=== PATIENT | male | born 1950 | race Caucasian/White ===

== ENCOUNTER 2016-07-26 09:39 | Emergency (ER) | payer OTHER ==
[~2016-07-26] VITALS: Ht 177.8 cm; Wt 83.0 kg
[2016-07-26 09:45] VITALS: TEMP 37; Ht 177.8 cm; Wt 83.0 kg
--- NOTE | 2016-07-26 10:42 | DIAGNOSTIC IMAGING REPORT ---
SINGLE VIEW CHEST CLINICAL HISTORY: Cough. FINDINGS: An AP, portable, upright chest radiograph is obtained. No prior studies are available for comparison at the time of dictation. The examination is degraded by portable technique and patient rotation. The heart is mildly enlarged and there is atherosclerotic calcification of the thoracic aorta. The lungs appear hyperinflated and hyperlucent suggesting emphysematous change. A 1.4 cm nodular density is suggested in the left midlung. No airspace consolidation, pleural effusion, or no pneumothorax is seen. Calcified granulomas are observed. The bony thorax is grossly intact. IMPRESSION: 1. Cardiomegaly and suspect emphysema. There is no acute cardiopulmonary abnormality. 2. There is a questionable 1.4 cm nodular density projecting over the left midlung. This may simply represent a prominent pulmonary vessel or supervision of shadows. Follow-up with a dedicated PA and lateral examination is recommended for reassessment. Electronically signed by: Jez Smith M.D. 07/26/2016 10:40 AM Dictated Date/Time: 07/26/2016 10:38 AM
--- NOTE | 2016-07-26 10:43 | DIAGNOSTIC IMAGING REPORT ---
HEAD CT NONCONTRAST CT DOSE: HISTORY: headache TECHNIQUE: Multiaxial CT images of the head were performed without the use of intravenous contrast. Automated exposure control was utilized for this study. Comparison: None. Findings: The calvarium and skull base are intact. The ventricles and sulci are within normal limits. There is no mass, hematoma, midline shift, or acute infarct. Impression: No acute intracranial abnormality. SINUS CT CT DOSE: HISTORY: headache TECHNIQUE: Multiaxial CT images of the paranasal sinuses were performed and reformatted in the coronal plane without the use of contrast. COMPARISON: None. FINDINGS: Mild mucosal thickening within the ethmoid air cells. Small amount of bubbly secretions within a single right posterior ethmoid air cell. The sphenoid sinuses, frontal sinuses, and right maxillary sinus are essentially clear. Tiny retention cysts within the left maxillary sinus. No fluid levels within the paranasal sinuses. Bilateral chavez bullosa. The mastoid air cells are clear. The bilateral ostiomeatal units are patent. The nasal septum is midline. The orbits are unremarkable. IMPRESSION: Minimal chronic sinus disease as described above. No fluid levels to suggest acute sinusitis. Electronically signed by: Ulisses Salmon M.D. 07/26/2016 10:41 AM Dictated Date/Time: 07/26/2016 10:33 AM
[2016-07-26 11:01] LABS: BASO % 0.3 %; BASO ABS # 0.02 K/uL (0-0.2); COMPLETE YES; EOS % 2.5 %; HEMATOCRIT 44.9 % (42-52); IG% 0.2 %; LYMPH % 23.5 %; LYMPH ABS # 1.53 K/uL (1.2-3.4); MEAN CELL VOLUME 92.8 fL (80-100); MEAN CORPUSCULAR HEMOGLOBIN 32.6 pg (25-34); MEAN CORPUSCULAR HGB CONC 35.2 g/dl (32-36); MEAN PLATELET VOLUME 11.3 fL (7.4-10.4); MONO % 13.5 %; PLATELET COUNT 183 K/uL (130-400); RED BLOOD COUNT 4.84 M/uL (4.7-6.1); WHITE BLOOD COUNT 6.52 K/uL (4.8-10.8)
[2016-07-26 11:22] LABS: BUN/CREATININE RATIO 14.6 (10-20); CALCIUM 9.1 mg/dl (8.5-10.1); CREATININE 0.83 mg/dl (0.60-1.40); POTASSIUM 3.8 mmol/L (3.5-5.1)
--- NOTE | 2016-07-26 12:07 | EMERGENCY ROOM VISIT NOTE ---
History Report prepared by [place]: Lawanda Bartlett Under the Supervision of: Dr. Yuval Amaya D.O. First contact with patient: 09:48 Chief Complaint: ILLNESS History of Present Illness The patient is a 66 year old male who presents to the Emergency Room with complaints of persistent dizziness that began five weeks ago. He currently rates his discomfort as a 4/10 in severity. The patient additionally notes a headache and ear pain. He denies seeing his primary care physician for this problem. The patient states that he has dry sinuses as well, noting that they are not properly draining. He notes a sore throat, cough, and neck tenderness. The patient denies any difficulty moving his bowels. He states that he was recently on Amoxicillin. The patient denies any recent congestion or runny nose. He denies taking any Tylenol or Motrin. The patient states that his dizziness is worsened with walking. He reports normal appetite, and normal fluid intake. Source of History: patient Onset: five weeks ago Position: other (global) Symptom Intensity: 4/10 Quality: other (dizziness) Timing: other Modifying Factors (Worsening): other (walking) Associated Symptoms: + cough, + headache, + neck pain, + sorethroat Note: Associated symptoms: ear pain. Review of Systems See HPI for pertinent positives & negatives. A total of 10 systems reviewed and were otherwise negative. Past Medical & Surgical No pertinent history stated. Family History No pertinent family history stated. Social History Smoking Status: Never Smoker Marital Status: Housing Status: lives with significant other Occupation Status: retired Current/Historical Medications No Active Prescriptions or Reported Meds Allergies Coded Allergies: No Known Allergies (Unverified , 07/26/16) Physical Exam Vital Signs Date Time Temp Pulse Resp B/P Pulse Ox O2 Delivery O2 Flow Rate FiO2 07/26/16 11:46 67 22 162/89 96 Room Air 07/26/16 10:10 67 16 159/92 97 Room Air 07/26/16 10:08 58 07/26/16 09:45 37.0 69 18 195/103 97 Room Air Physical Exam CONSTITUTIONAL/VITAL SIGNS: Reviewed / noted above. GENERAL: Non-toxic in appearance. INTEGUMENTARY: Warm, dry, and [place]. HEAD: Normocephalic. No tenderness to palpation of the temporal arteries. EYES: without scleral icterus or trauma. ENT/OROPHARYNX: clear and moist. LYMPHADENOPATHY/NECK: Is supple without lymphadenopathy or meningismus. RESPIRATORY: Lungs clear and equal. CARDIOVASCULAR: Regular rate and rhythm. GI/ABDOMEN: Soft and nontender. No organomegaly or pulsatile mass. No rebound or guarding. Normal bowel sounds. EXTREMITIES: Warm and well perfused. BACK: No CVA tenderness. NEUROLOGICAL: Intact without focal deficits. PSYCHIATRIC: normal affect. MUSCULOSKELETAL: Normally developed with good muscle tone. Medical Decision & Procedures ER Provider Diagnostic Interpretation: X ray results and stated below per my interpretation and radiologist interpretation. Other radiology results and stated below per my review and radiologist interpretation: HEAD CT NONCONTRAST CT DOSE: HISTORY: headache TECHNIQUE: Multiaxial CT images of the head were performed without the use of intravenous contrast. Automated exposure control was utilized for this study. Comparison: None. Findings: The calvarium and skull base are intact. The ventricles and sulci are within normal limits. There is no mass, hematoma, midline shift, or acute infarct. Impression: No acute intracranial abnormality. SINUS CT CT DOSE: HISTORY: headache TECHNIQUE: Multiaxial CT images of the paranasal sinuses were performed and reformatted in the coronal plane without the use of contrast. COMPARISON: None. FINDINGS: Mild mucosal thickening within the ethmoid air cells. Small amount of bubbly secretions within a single right posterior ethmoid air cell. The sphenoid sinuses, frontal sinuses, and right maxillary sinus are essentially clear. Tiny retention cysts within the left maxillary sinus. No fluid levels within the paranasal sinuses. Bilateral chavez bullosa. The mastoid air cells are clear. The bilateral ostiomeatal units are patent. The nasal septum is midline. The orbits are unremarkable. IMPRESSION: Minimal chronic sinus disease as described above. No fluid levels to suggest acute sinusitis. Electronically signed by: Ulisses Salmon M.D. 07/26/2016 10:41 AM Dictated Date/Time: 07/26/2016 10:33 AM SINGLE VIEW CHEST CLINICAL HISTORY: Cough. FINDINGS: An AP, portable, upright chest radiograph is obtained. No prior studies are available for comparison at the time of dictation. The examination is degraded by portable technique and patient rotation. The heart is mildly enlarged and there is atherosclerotic calcification of the thoracic aorta. The lungs appear hyperinflated and hyperlucent suggesting emphysematous change. A 1.4 cm nodular density is suggested in the left midlung. No airspace consolidation, pleural effusion, or no pneumothorax is seen. Calcified granulomas are observed. The bony thorax is grossly intact. IMPRESSION: 1. Cardiomegaly and suspect emphysema. There is no acute cardiopulmonary abnormality. 2. There is a questionable 1.4 cm nodular density projecting over the left midlung. This may simply represent a prominent pulmonary vessel or supervision of shadows. Follow-up with a dedicated PA and lateral examination is recommended for reassessment. Electronically signed by: Jez Smith M.D. 07/26/2016 10:40 AM Dictated Date/Time: 07/26/2016 10:[address] CT DOSE: HISTORY: headache TECHNIQUE: Multiaxial CT images of the head were performed without the use of intravenous contrast. Automated exposure control was utilized for this study. Comparison: None. Findings: The calvarium and skull base are intact. The ventricles and sulci are within normal limits. There is no mass, hematoma, midline shift, or acute infarct. Impression: No acute intracranial abnormality. SINUS CT CT DOSE: HISTORY: headache TECHNIQUE: Multiaxial CT images of the paranasal sinuses were performed and reformatted in the coronal plane without the use of contrast. COMPARISON: None. FINDINGS: Mild mucosal thickening within the ethmoid air cells. Small amount of bubbly secretions within a single right posterior ethmoid air cell. The sphenoid sinuses, frontal sinuses, and right maxillary sinus are essentially clear. Tiny retention cysts within the left maxillary sinus. No fluid levels within the paranasal sinuses. Bilateral chavez bullosa. The mastoid air cells are clear. The bilateral ostiomeatal units are patent. The nasal septum is midline. The orbits are unremarkable. IMPRESSION: Minimal chronic sinus disease as described above. No fluid levels to suggest acute sinusitis. Electronically signed by: Ulisses Salmon M.D. 07/26/2016 10:41 AM Dictated Date/Time: 07/26/2016 10:33 AM Laboratory Results 07/26/16 10:10 Red Blood Count 4.84, Mean Corpuscular Volume 92.8, Mean Corpuscular Hemoglobin 32.6, Mean Corpuscular Hemoglobin Concent 35.2, Mean Platelet Volume 11.3, Neutrophils (%) (Auto) 60.0, Lymphocytes (%) (Auto) 23.5, Monocytes (%) (Auto) 13.5, Eosinophils (%) (Auto) 2.5, Basophils (%) (Auto) 0.3, Neutrophils # (Auto ) 3.92, Lymphocytes # (Auto) 1.53, Monocytes # (Auto) 0.88, Eosinophils # (Auto ) 0.16, Basophils # (Auto) 0.02 07/26/16 10:10 Test 07/26/16 10:10 White Blood Count 6.52 K/uL (4.8-10.8) Red Blood Count 4.84 M/uL (4.7-6.1) Hemoglobin 15.8 g/dL (14.0-18.0) Hematocrit 44.9 % (42-52) Mean Corpuscular Volume 92.8 fL (80-100) Mean Corpuscular Hemoglobin 32.6 pg (25-34) Mean Corpuscular Hemoglobin Concent 35.2 g/dl (32-36) Platelet Count 183 K/uL (130-400) Mean Platelet Volume 11.3 fL (7.4-10.4) Neutrophils (%) (Auto) 60.0 % Lymphocytes (%) (Auto) 23.5 % Monocytes (%) (Auto) 13.5 % Eosinophils (%) (Auto) 2.5 % Basophils (%) (Auto) 0.3 % Neutrophils # (Auto) 3.92 K/uL (1.4-6.5) Lymphocytes # (Auto) 1.53 K/uL (1.2-3.4) Monocytes # (Auto) 0.88 K/uL (0.11-0.59) Eosinophils # (Auto) 0.16 K/uL (0-0.5) Basophils # (Auto) 0.02 K/uL (0-0.2) RDW Standard Deviation 46.7 fL (36.4-46.3) RDW Coefficient of Variation 13.8 % (11.5-14.5) Immature Granulocyte % (Auto) 0.2 % Immature Granulocyte # (Auto) 0.01 K/uL (0.00-0.02) Erythrocyte Sedimentation Rate 28 mm/hr (0-14) Anion Gap 10.0 mmol/L (3-11) Est Creatinine Clear Calc Drug Dose 92.8 ml/min Estimated GFR () 107.8 Estimated GFR (Non- 93.0 BUN/Creatinine Ratio 14.6 (10-20) Calcium Level 9.1 mg/dl (8.5-10.1) Laboratory results as stated above per my review. ED Course 0950: Previous medical records were reviewed. The patient was evaluated in room B2. A complete history and physical examination was performed. 1211: I reevaluated the patient and he is resting comfortably. I discussed the exam findings with him and I discussed the treatment plan. He verbalized complete understanding and agreement. He is ready to go home. Medical Decision Differential includes: Acute intracranial bleed, trauma, meningitis, encephalitis, increased intracranial pressure, mass or mass effect, facial or dental infection, temporal arteritis, CVA, TIA, acute hypertensive emergency, sinusitis, carbon monoxide exposure.Differential includes acute coronary syndrome, myocardial infarction, CVA, TIA, anemia, infection, pneumonia, UTI, pyelonephritis, poor nutrition, dehydration, electrolyte disturbance, hypoglycemia. This is a 66-year-old male who presents to the ED with a chief complaint of some dizziness and ear pressure for the past 5-6 weeks. The patient finished a course of amoxicillin about 2 weeks ago for the same symptoms. He states that it did not seem to change his symptoms. He denies other significant symptoms. No focal deficits. No recent flu symptoms. The patient's exam was essentially normal. Initial blood pressure was elevated but on recheck was 168/93. He states that he checks his blood pressure at home and is usually around 130/90. CT scan of the head and sinuses did not show any acute process. He has minimal chronic sinus disease. Chest x-ray revealed no acute disease. CBC is normal. Sedimentation rate was 28. PRP was normal. The patient was told the results of the test. He is felt to be stable for discharge. Impression Primary Impression: Headache Scribe Attestation The scribe's documentation has been prepared under my direction and personally reviewed by me in its entirety. I confirm that the note above accurately reflects all work, treatment, procedures, and medical decision making performed by me. Departure Information Dispostion Home / Self-Care Prescriptions Azithromycin (ZITHROMAX Z-EMELIA) 250 Mg Tab 0 PO UD, #1 PKT 2 TABS DAY 1, THEN 1 TAB DAILY FOR 4 DAYS Prov: Yuval Amaya D.Cornelius. 07/26/16 Referrals No Doctor, Assigned (PCP) Forms HOME CARE DOCUMENTATION FORM, IMPORTANT VISIT INFORMATION, WORK / SCHOOL INSTRUCTIONS Patient Instructions My [facility] Additional Instructions CAT scan of your head and sinuses showed some minimal chronic sinus disease. Your chest x-ray showed a small nodule. Repeat chest x-ray in 2-3 weeks recommended. Blood work did not reveal any anemia. Chemistry panel and blood sugar are normal. The exact cause of your symptoms are unclear at this time. Take Tylenol or Motrin as needed for discomfort. Follow-up with your doctor for recheck in 1-2 weeks. A prescription for Zithromax has been sent to [facility].
[2016-07-26] MEDS ORDERED: AZITTAB PO (12:26)
[2016-07-26 12:35] VITALS: BP 169/96; PULSE 61; O2SAT 95
== END 2016-07-26 12:36 | disposition home or self-care (01) ==
LOC: C.EDB 09:40
DX: R51 Headache (principal)